=== PATIENT | male | born 1930 | race Caucasian/White ===

== ENCOUNTER 2017-04-02 18:55 | Inpatient (IN) | payer MEDICARE ==
[~2017-04-02] VITALS: Ht 172.7 cm; Wt 75.3 kg
--- NOTE | 2017-04-02 | NUR ---
RN NOTES LOVENOX SQ HELD, BLEEDING THROUGH THE WINKLER CATHETER. NOTED STEVENSON COLORED URINE.
--- NOTE | 2017-04-02 19:43 | NUR ---
RN NOTES RECEIVED REPORT FROM [facility] REGARDING POSSIBLE NEW ADMISSION. RECEIVED ROCEPHIN IV AND NS IL X1, AWAITING ARRIVAL
--- NOTE | 2017-04-02 21:20 | NUR ---
RN NOTES PATIENT ARRIVED VIA GURNEY ACCOMPANIED BY TWO PARAMEDICS FROM [facility]. PATIENT IS ALERT AND ORIENTED X2, PLEASANT, CALM, WITH EPISODES OF FORGETFULNESS AND CONFUSION. NO DISTRESS, 98% IN ROOM AIR, LUNG SOUNDS ARE CLEAR ON AUSCULTATION, ABDOMEN SOFT AND NON-TENDER, ACTIVE BOWEL SOUNDS, NOTED TWO PERIPHERAL IV IN LEFT AND RIGHT ANTECUBITAL. BOTH ARE SECURED WITH DRESSING. WINKLER CATHETER IS DRAINING WELL, URINE COLOR IS DARK YELLOW AND WITH SCANT BLOOD IN THE MEATUS. SKIN ASSESSMENT PERFORMED, SEEN BY DR. SANDOVAL AT THE BEDSIDE, ORIENTED AND DEMONSTRATED USE OF CALL LIGHT. GIVEN SPONGE BATH, REPOSITIONED FOR COMFORT, WILL CONTINUE TO MONITOR.
[2017-04-02 21:30] VITALS: BP 174/106
[2017-04-02] MEDS ORDERED: IV D5/0.45 NACL 1,000 ML IV PRN (22:04)
--- NOTE | 2017-04-02 22:20 | NUR ---
RN NOTES NOTIFIED DAUGHTER BRUNO OF PATIENT'S ARRIVAL, ALSO CONFIRMED CODE STATUS. PER DAUGHTER, PATIENT IS DNR.
[2017-04-02] MEDS ORDERED: Z GUARD REMEDY 2 OZ OINT TP PRN (22:30)
[2017-04-02] MEDS ORDERED: ONDANSETRON HCL/PF 4 MG/2 ML VIAL IVP PRN (22:30)
[2017-04-02] MEDS ORDERED: ACETAMINOPHEN 325 MG TABLET PO PRN (22:30)
[2017-04-02] MEDS ORDERED: MAGNESIUM HYDROXIDE 30 ML UDC PO PRN (22:30)
[2017-04-02] MEDS ORDERED: ZOLPIDEM TARTRATE 5 MG TABLET PO PRN (22:30)
[2017-04-02] MEDS ORDERED: MAG HYDROX/AL HYDROX/SIMETH 30 ML UDC PO PRN (22:30)
[2017-04-02] MEDS ORDERED: ENOXAPARIN SODIUM 40 MG/0.4 ML DISP.SYRIN SQ SCH (22:30)
--- NOTE | 2017-04-02 23:02 | NUR ---
SPOKE TO KAITLYNN Missionly FROM, [facility] [phone] REGARDING CURRENT PT'S MEDICATION AND VACCINES RECORDS, PER KAITLYNN SHE WILL FAX MED LIST AND VACCINE LIST.
--- NOTE | 2017-04-02 23:19 | NUR ---
RN NOTES NOTIFIED DR. SANDOVAL OF ELEVATED BP OF 174/106 HR 78, BG 253. PER MD WILL PUT IN NEW ORDER. PER MD, DC D5NS AND SWITCH TO 1/2 NS AT 75 CC/HR. MD ALSO MADE AWARE OF DNR CODE STATUS, ORDERS NOTED AND CARRIED OUT.
[2017-04-02] MEDS ORDERED: ENOXAPARIN SODIUM 40 MG/0.4 ML DISP.SYRIN SQ ONE (23:38)
[2017-04-02] MEDS: IV 1/2NS 1000 ML 1,000 ML IV PRN (23:53)
[2017-04-03] VITALS: BP 174/106
[2017-04-03] MEDS ORDERED: CLONIDINE HCL 0.1 MG TABLET ONE (00:53)
[2017-04-03] MEDS ORDERED: DEXTROSE 50%-WATER 50 ML DISP.SYRIN IV PRN (01:00)
[2017-04-03] MEDS: CLONIDINE HCL 0.1 MG TABLET PO PRN ×2 (01:02→21:17)
[2017-04-03] MEDS: INSULIN REGULAR, HUMAN 100 UNIT/ML 3 ML VIAL SQ PRN ×3 (01:03→17:31)
[2017-04-03] MEDS: BLOOD SUGAR DIAGNOSTIC 1 EACH STRIP IN SCH ×5 (01:04→21:21)
[2017-04-03] MEDS ORDERED: CLOP75TA2 PO (02:14)
[2017-04-03] MEDS ORDERED: SITA100T PO (02:14)
[2017-04-03] MEDS ORDERED: SIMV40TA2 PO (02:14)
[2017-04-03] MEDS ORDERED: ASPI-605 PO (02:14)
[2017-04-03] MEDS ORDERED: POLY17PO4 PO (02:14)
[2017-04-03] MEDS ORDERED: CARV3.12 PO (02:14)
[2017-04-03] MEDS ORDERED: PANT40TA2 PO (02:14)
[2017-04-03] MEDS ORDERED: TAMS-12 PO (02:14)
--- NOTE | 2017-04-03 02:55 | NUR ---
RN NOTES PATIENT HAS EPISODES OF CONFUSION, PULLING OUT WINKLER CATHETER AND TRYING TO GET OUT OF BED UNASSISTED, KEPT SAFE AND COMFORTABLE
--- NOTE | 2017-04-03 03:24 | NUR ---
RN NOTES RECHECKED BP AFTER CLONIDINE 0.1 MG PO 130/81 HR 85
[2017-04-03 04:00] VITALS: BP 135/75
[2017-04-03 04:37] LABS: BASOPHILS % (AUTO) 0.2 % (0.0-2.0); EOSINOPHILS # (AUTO) 0.2 /CMM (0.0-0.7); EOSINOPHILS % (AUTO) 2.6 % (0.0-6.0); HEMATOCRIT 41 % (39-51); HEMOGLOBIN 13.9 g/dL (13.5-17.5); LYMPHOCYTES # (AUTO) 1.2 /CMM (0.8-4.8); LYMPHOCYTES % (AUTO) 15.4 % (20.0-44.0); MEAN CORPUSCULAR HEMOGLOBIN 31 PG (26.0-33.0); MEAN CORPUSCULAR HGB CONC 34 g/dl (31.0-36.0); MEAN CORPUSCULAR VOLUME 90 fL (80-96); MONOCYTES # (AUTO) 0.9 /CMM (0.1-1.30); MONOCYTES % (AUTO) 12.2 % (2.0-12.0); NEUTROPHILS # (AUTO) 5.3 /CMM (1.8-8.9); NEUTROPHILS % (AUTO) 69.6 % (43.0-81.0); PLATELET COUNT (AUTO) 154 /CMM (150-450); RED BLOOD CELL COUNT(AUTO) 4.56 MIL/uL (4.5-6.0); WHITE BLOOD COUNT (AUTO) 7.7 K/uL (4.3-11.0)
[2017-04-03 05:07] LABS: ALANINE AMINOTRANSFERASE 43 U/L (12-78); ALKALINE PHOSPHATASE 69 U/L (46-116); ASPARTATE AMINOTRANSFERASE 26 U/L (15-37); BILIRUBIN,TOTAL 0.5 mg/dL (0.2-1.0); CARBON DIOXIDE 27 mmol/L (21-32); CHLORIDE 105 mmol/L (98-107); CREATININE 1.9 mg/dL (0.6-1.3); GLUCOSE 148 mg/dL (74-106); PHOSPHORUS 3.1 mg/dL (2.5-4.9); SODIUM SERUM 140 mmol/L (136-145); UREA NITROGEN, BLOOD 27 mg/dL (7-18)
[2017-04-03 05:22] LABS: CHOLESTEROL 128 mg/dL (<200); HDL CHOLESTEROL 38 mg/dL (40-60); LDL 73 mg/dL (0-99); THYROID STIMULATING HORMONE 1.292 uIU/mL (0.358-3.74); TRIGLYCERIDES 88 mg/dL (30-150)
--- NOTE | 2017-04-03 06:33 | NUR ---
RN NOTES PATIENT IS ALERT AND AWAKE, WITH EPISODE OF CONFUSION, RE-ORIENTED TO TIME AND PLACE, NO SOB, TOLERATING ROOM AIR, DENIES ANY PAIN, NO CHEST PAIN. RIGHT AC PERIPHERAL LINE IS PATENT AND INFUSING WELL, WINKLER CATHETER HAS HEMATURIA,DR. SANDOVAL IS AWARE, HELD LOVENOX. BED ALARM TURNED ON, ON FALL PRECAUTION, NEEDS ATTENDED, KEPT SAFE AND COMFORTABLE, CALL LIGHT WITHIN REACH.
--- NOTE | 2017-04-03 07:50 | NUR ---
COAT ROOM ATTENDANT NOTE RECEIVED PATIENT IN THE BED, PT IS ALERT AND AWAKE, WITH EPISODE OF CONFUSION, RE-ORIENTED TO TIME AND PLACE, NO SOB, TOLERATING ROOM AIR, SINUS RYTHM ON THE TELE MONITOR, SKIN IS WARM/DRY, NO S/S OF PAIN NOTED, NO CHEST PAIN. RIGHT AC PERIPHERAL LINE IS PATENT AND INFUSING WELL, BED ALARM TURNED ON, ON FALL PRECAUTION, NEEDS ATTENDED, KEPT SAFE AND COMFORTABLE, CALL LIGHT WITHIN REACH.
[2017-04-03 08:00] VITALS: BP 152/85
[2017-04-03 12:00] VITALS: BP 136/82
[2017-04-03] MEDS: HYDROCODONE/APAP 5/325MG 1 EACH TABLET PO PRN (13:01)
[2017-04-03 14:54] LABS: APPEARANCE,URINE TURBID (CLEAR); BILIRUBIN,URINE 1+ (NEGATIVE); BLOOD, URINE 3+ Ery/uL (NEGATIVE); COLOR,URINE RED (YELLOW); KETONES,URINE TRACE (NEGATIVE); LEUKOCYTE ESTERASE ,URINE 1+ (NEGATIVE); NITRITE, URINE POSITIVE (NEGATIVE); PROTEIN,URINE 3+ mg/dl (NEGATIVE); UGLUCOSE 1+ mg/dL (NEGATIVE)
[2017-04-03 15:46] LABS: CREATININE, URINE 248.7 MG/DL (30.0-125.0)
[2017-04-03 16:00] VITALS: BP 115/75
[2017-04-03 17:14] LABS: BACTERIA,URINE Moderate /HPF (None Seen); RBC,URINE TOO NUMEROUS TO COUN /HPF (0-2); SQUAMOUS EPITHELIAL CELL,UR Few /HPF (None Seen)
[2017-04-03] MEDS: CARVEDILOL 3.125 MG TABLET PO SCH (17:28)
--- NOTE | 2017-04-03 19:07 | NUR ---
SKIN THERAPIST NOTE PATIENT IS IN BED, ALERT/ORIENTED TO NAME, NO S/S OF DISTRESS NOTED, ALL NEEDS ATTENDED, SIDE RAILS UP APPROPRIATE, BED IN LOW POSITION, ALL ORDERS CARRIED OUT APPROPRIATELY
--- NOTE | 2017-04-03 19:40 | NUR ---
GLASS ENGRAVER NOTES PT RECEIVED RESTING IN BED, HOB ELEVATED. A/OX1. ON ROOM AIR, BREATHING EVEN AND UNLABORED. NO APPARENT DISTRESS, SOB OR PAIN. WINKLER IN PLACE AND DRAINING TO GRAVITY. IV TO RAC PATENT AND INTACT RUNNING IVF ORDERED. BED IN LOW/LOCKED POSITION WITH CALL LIGHT IN REACH. SIDE RAILS UPX3 WITH BED ALARM ON FOR SAFETY. FALL PRECAUTIONS IMPLEMENTED. WILL CONTINUE TO MONITOR
[2017-04-03 20:00] VITALS: BP 162/94
[2017-04-03] MEDS ORDERED: CEFTRIAXONE 1 G in IV D5W 50 ML IV SCH (21:00)
[2017-04-03] MEDS: ENOXAPARIN SODIUM 30 MG/0.3 ML DISP.SYRIN SQ SCH (21:20)
[2017-04-04] VITALS: BP 139/99
[2017-04-04 04:00] VITALS: BP 135/94
[2017-04-04] MEDS: IV 1/2NS 1000 ML 1,000 ML IV PRN (05:58)
--- NOTE | 2017-04-04 06:35 | NUR ---
TELE/RN CLOSING NOTES PT ASLEEP, RESTING COMFORTABLY IN BED. A/OX1, CONFUSED. ON ROOM AIR, BREATHING EVEN AND UNLABORED. NO S/S OF SOB, DENIES PAIN, IN NO APPARENT DISTRESS. ON TELE MONITOR, SINUS RHYTHM WITH PVC'S, HR 82. WINKLER IN PLACE WITH NOTED HEMATURIA, MD'S AWARE, DRAINING TO GRAVITY. IV TO LAC AND RAC PATENT AND INTACT RUNNING IVF ORDERED. PT FOR CT HEAD WITHOUT CONTRAST TODAY. FLUIDS PROVIDED DURING SHIFT. KEPT PT COMFORTABLE DURING SHIFT AND REORIENTED PRN. BED IN LOW/LOCKED POSITION WITH CALL LIGHT IN REACH. SIDE RAILS UPX3 WITH BED ALARM ON FOR SAFETY. WILL ENDORSE TO AM SHIFT RICHY.
[2017-04-04 06:46] LABS: CALCIUM, SERUM 8.9 mg/dL (8.5-10.1); CARBON DIOXIDE 23 mmol/L (21-32); CHLORIDE 104 mmol/L (98-107); GLUCOSE 158 mg/dL (74-106); SODIUM SERUM 139 mmol/L (136-145); UREA NITROGEN, BLOOD 27 mg/dL (7-18)
--- NOTE | 2017-04-04 07:30 | NUR ---
RN NOTES RECEIVED PT AWAKE ALERT AND VERBALLY RESPONSIVE, ABLE TO MAKE NEEDS KNOWN, RESPIRATIONS EVEN AND UNLABORED, DENIES ANY PAIN OR DISCOMFORT AT THIS TIME. IV ACCESS PATENT AND INTACT NO REDNESS OR INFILTRATION NOTED, PATIENT WITH FC IN PLACE PATENT AND INTACT, NOTED WITH HEMATURIA, MD AWARE, CONTINUE TO MONITOR. SAFETY MEASURES IN PLACE, CONTINUE TO MONITOR AT THIS TIME
[2017-04-04] MEDS: BLOOD SUGAR DIAGNOSTIC 1 EACH STRIP IN SCH ×4 (07:58→21:44)
[2017-04-04 08:00] VITALS: BP 137/68
[2017-04-04] MEDS: SIMVASTATIN 40 MG TABLET PO SCH (08:34)
[2017-04-04] MEDS: TAMSULOSIN 0.4 MG CAP.SR.24H PO SCH (08:34)
[2017-04-04] MEDS: ASPIRIN EC 81 MG TABLET.DR PO SCH (08:34)
[2017-04-04] MEDS: CLOPIDOGREL BISULFATE 75 MG TABLET PO SCH (08:34)
[2017-04-04] MEDS: INSULIN REGULAR, HUMAN 100 UNIT/ML 3 ML VIAL SQ PRN ×4 (08:40→21:48)
[2017-04-04] MEDS: CARVEDILOL 3.125 MG TABLET PO SCH ×2 (09:00→16:53)
[2017-04-04] MEDS: LEVOFLOXACIN (250MG) 250 MG TABLET PO SCH (12:34)
--- NOTE | 2017-04-04 15:59 | NUR ---
RN NOTES PT AWAKE ALERT AND VERBALLY RESPONSIVE, ABLE TO MAKE NEEDS KNOWN, RESPIRATIONS EVEN AND UNLABORED, DENIES ANY PAIN OR DISCOMFORT AT THIS TIME. IV ACCESS PATENT AND INTACT NO REDNESS OR INFILTRATION NOTED, PATIENT WITH REMOVAL OF FC TOLERATED WELL WITH ORDERS FOR REMOVAL,NOTED WITH HEMATURIA, MD AWARE, CONTINUE TO MONITOR. SAFETY MEASURES IN PLACE, CONTINUE TO MONITOR AT THIS TIME, ENDORSED TO NEXT NURSE FOR CONTINUITY OF CARE
[2017-04-04 16:00] VITALS: BP 130/73
--- NOTE | 2017-04-04 16:05 | NUR ---
RN NOTES REPORT GIVEN FOR CONTINUATION OF CARE, A&0X1 WITH PERIODS OF CONFUSION, LAC 20G WITH IVF AT 75ML/HR, LAC 20G IV SITE DRY AND INTACT. BED LOCKED AND IN LOWEST POSITION, CALL LIGHT WITHIN REACH, SIDE RAILS UPX3, NO COMPLAINTS OF PAIN.
--- NOTE | 2017-04-04 18:20 | NUR ---
RN NOTES PT REMAINED IN STABLE CONDITION NO SIGNIFICANT CHANGES. ALL NEEDS MET CALL LIGHT WITHIN REACH, SIDE RAILS UPX3, BED ALARM ON, IVF RUNNING. WILL ENDORSE TO ONCOMING SHIFT.
[2017-04-04 20:00] VITALS: BP 146/94
--- NOTE | 2017-04-04 20:30 | NUR ---
RN INITIAL MS NOTES PT AWAKE ALERT AND VERBALLY RESPONSIVE, ABLE TO MAKE NEEDS KNOWN, RESPIRATIONS EVEN AND UNLABORED, DENIES ANY PAIN OR DISCOMFORT AT THIS TIME. IV ACCESS PATENT AND INTACT NO REDNESS OR INFILTRATION NOTED, S/P REMOVAL OF FC TOLERATED WELL, NO S/S OF RETENTION, WITH EPISODE OF INCONTINENCE X2, BLADDER SOFT, DENIES ANY DISCOMFORT DURING URINATION, AFEBRILE, WILL CONTINUE TO MONITOR. SAFETY MEASURES IN PLACE, CALL LIGHT IN REACH.
[2017-04-04] MEDS: ENOXAPARIN SODIUM 30 MG/0.3 ML DISP.SYRIN SQ SCH (21:00)
--- NOTE | 2017-04-04 21:49 | NUR ---
2100 LOVENOX 30MG SQ HELD, D/T AM, NURSE ENDORSEMENT TO MONITOR FOR HEMATURIA, S/P F/C REMOVAL, WILL CONT TO MONITOR
[2017-04-04] MEDS: CLONIDINE HCL 0.1 MG TABLET PO PRN (23:38)
[2017-04-05 00:11] VITALS: BP 140/80
--- NOTE | 2017-04-05 00:28 | NUR ---
NOTED WITH A HIGH BP OF 165/88, 76 CLONODINE 0.1MG PO GIVEN, BP ABLE TO DECREASE 140/80 98 WILL CONT TO [id number]
[2017-04-05 04:00] VITALS: BP 149/86
[2017-04-05] MEDS: HYDROCODONE/APAP 5/325MG 1 EACH TABLET PO PRN (04:08)
[2017-04-05] MEDS: CLONIDINE HCL 0.1 MG TABLET PO PRN (04:12)
[2017-04-05 08:00] VITALS: BP_SYST 145; BP_SYST 152; BP_SYST 155; BP_DIAS 78; BP_DIAS 89; BP_DIAS 90
[2017-04-05] MEDS: BLOOD SUGAR DIAGNOSTIC 1 EACH STRIP IN SCH ×2 (08:00→12:17)
[2017-04-05] MEDS: INSULIN REGULAR, HUMAN 100 UNIT/ML 3 ML VIAL SQ PRN ×2 (08:04→12:27)
[2017-04-05 08:54] VITALS: BP 155/90
[2017-04-05] MEDS: ASPIRIN EC 81 MG TABLET.DR PO SCH (08:54)
[2017-04-05] MEDS: TAMSULOSIN 0.4 MG CAP.SR.24H PO SCH (08:54)
[2017-04-05] MEDS: CARVEDILOL 3.125 MG TABLET PO SCH (08:54)
[2017-04-05] MEDS: CLOPIDOGREL BISULFATE 75 MG TABLET PO SCH (08:54)
[2017-04-05] MEDS: SIMVASTATIN 40 MG TABLET PO SCH (08:54)
--- NOTE | 2017-04-05 11:48 | NUR ---
RN INITIAL NOTES PT AWAKE ALERT AND VERBALLY RESPONSIVE.ABLE TO MAKE NEEDS KNOWN, RESPIRATIONS EVEN AND UNLABORED, NO PAIN OR DISCOMFORT. IV ACCESS PATENT AND INTACT NO REDNESS OR INFILTRATION NOTED. WILL CONTINUE TO MONITOR. SAFETY MEASURES IN PLACE, CALL LIGHT IN REACH, SIDE RAILS UP X 3. Addendum: 04/05/17 at 1512 by EFRA SMITH RN CHANGED TIME DOCUMENTATION: 0718h PT IS A/O X1. NO SOB WHILE ON ROOM AIR. 2 IV ACCESS ON R AC G20 AND L AC G20, SL, BOTH FLUSHING WELL, PATENT & INTACT W/ NO S/SX OF INFECTION/INFILTRATION NOTED. BED KEPT LOW & IN LOCKED POS. BED ALARM PUT ON FOR PT'S SAFETY. FWW PLACED AT BEDSIDE.
[2017-04-05] MEDS: LEVOFLOXACIN (250MG) 250 MG TABLET PO SCH (12:18)
--- NOTE | 2017-04-05 15:13 | NUR ---
PLANT MAINTENANCE TECHNICIAN NOTES: PT DC'D BACK TO [facility] ([facility]) ORDERED. DC DOCUMENTS GIVEN TO THE AMBULANZ LANE ATTENDANT. 2 IV ACCESS REMOVED, PRESSURE DRESSING APPLIED, NO INFECTION OR BLEEDING NOTED. WOUND PICTURES TAKEN AND PLACED IN CHART. REPORT GIVEN TO JULIET. PT LEFT FACILITY IN STABLE CONDITION VIA GURNEY ACCOMPANIED BY LANE ATTENDANT. NO BELONGINGS NOTED. NO CONCERNS IDENTIFIED AT THIS TIME. PT'S DTR BRUNO INFORMED ABOUT PT'S DC, LEFT .
== END 2017-04-05 15:31 | DRG 698 ==
LOC: TELE1 21:19 → MEDSG1 04-04 08:35
PROVIDERS: ADMIT Internal Medicine; ATTEND Internal Medicine
DX: T83.098A Other mechanical complication of other urinary catheter, initial encounter (principal); G93.41 Metabolic encephalopathy; N17.9 Acute kidney failure, unspecified; N39.0 Urinary tract infection, site not specified; E11.22 Type 2 diabetes mellitus with diabetic chronic kidney disease; R31.9 Hematuria, unspecified; R54 Age-related physical debility; I12.9 Hypertensive chronic kidney disease with stage 1 through stage 4 chronic kidney disease, or unspecified chronic kidney disease; N18.9 Chronic kidney disease, unspecified; I25.10 Atherosclerotic heart disease of native coronary artery without angina pectoris; N40.0 Benign prostatic hyperplasia without lower urinary tract symptoms; Y84.9 Medical procedure, unspecified as the cause of abnormal reaction of the patient, or of later complication, without mention of misadventure at the time of the procedure; Y92.099 Unspecified place in other non-institutional residence as the place of occurrence of the external cause; R55 Syncope and collapse; B96.89 Other specified bacterial agents as the cause of diseases classified elsewhere
CPT/HCPCS: 36415; 70450-TC; 80048-TC; 80053-TC; 80061-TC; 81000-TC; 82570-TC; 82962-TC; 83735-TC; 84100-TC; 84300-TC; 84443-TC; 84484-TC; 85025-TC; 87081-TC; 87086-TC; 92611-TC; 93307-TC; A6402; J0696; J1650; J1815; J3490; J7060; Z7610